=== PATIENT | female | born 1980 | race Caucasian/White ===

== ENCOUNTER 2024-03-05 18:49 | Inpatient (IN) | payer OTHER ==
[2024-03-05 21:58] VITALS: BMI 25.6
[2024-03-05] MEDS ORDERED: BISMUTH SUBSALICYLATE 524 MG/30 ML PO PRN (22:41)
[2024-03-05] MEDS ORDERED: ONDANSETRON *ODT* 4 MG TABLET SL PRN (22:41)
[2024-03-05] MEDS ORDERED: NICOTINE POLACRILEX 2 MG GUM BUC PRN (22:41)
[2024-03-05] MEDS ORDERED: NICOTINE POLACRILEX 2 MG LOZENGE BC PRN (22:41)
[2024-03-05] MEDS ORDERED: NALOXONE HCL 0.4 MG/ML VIAL IM PRN (22:41)
[2024-03-05] MEDS ORDERED: MAGNESIUM HYDROX 2400MG/30ML ORAL SUSPENSION 30 ML CUP PO PRN (22:41)
[2024-03-05] MEDS ORDERED: POLYETHYLENE GLYCOL (HEALTHYLAX) 3350 17 GM PACKET PO PRN (22:41)
[2024-03-05] MEDS ORDERED: BENZONATATE 200 MG CAPSULE PO PRN (22:41)
[2024-03-05] MEDS ORDERED: IBUPROFEN 400 MG TABLET (FP) PO PRN (22:41)
[2024-03-05] MEDS ORDERED: BENZOCAINE/MENTHOL (CHLORASEPTIC ) LOZENGE MM PRN (22:41)
[2024-03-05] MEDS ORDERED: guaiFENesin 600 MG TABLET.ER (FP) PO PRN (22:41)
[2024-03-05] MEDS ORDERED: DICYCLOMINE HCL 10 MG CAPSULE PO PRN (22:41)
[2024-03-05] MEDS ORDERED: MAG HYDROX/AL HYDROX/SIMETH 30 ML UNIT-DOSE CUP PO PRN (22:41)
[2024-03-05] MEDS ORDERED: P-EPHED 60MG/TRIPROLIDI 2.5MG TABLET PO PRN (22:41)
[2024-03-05] MEDS ORDERED: NALOXONE (NARCAN) HCL 4 MG/0.1 ML SPRAY NS PRN (22:41)
[2024-03-05] MEDS ORDERED: LOPERAMIDE HCL 2 MG CAPSULE PO PRN (22:41)
[2024-03-05] MEDS ORDERED: hydrOXYzine PAMOATE 25 MG CAPSULE (FP) PO ONE (23:46)
[2024-03-05] MEDS ORDERED: IBUPROFEN 600 MG TABLET (FP) PO ONE (23:51)
[2024-03-05] MEDS: IBUPROFEN 600 MG TABLET (FP) PO PRN (23:52)
[2024-03-05] MEDS: hydrOXYzine PAMOATE 25 MG CAPSULE (FP) PO PRN (23:52)
[2024-03-06] MEDS ORDERED: diazePAM 5 MG TABLET PO PRN (10:33)
[2024-03-06] MEDS: PRENATAL VITAMINS W/ FOLIC ACID TABLET (FP) PO SCH (10:51)
[2024-03-06] MEDS: diazePAM 5 MG TABLET PO SCH (11:13)
[2024-03-06 14:16] LABS: CHLORIDE 112 mmol/L (98-107); POTASSIUM 4.3 mmol/L (3.5-5.1); SODIUM 141 mmol/L (136-145)
[2024-03-06 14:18] LABS: CALCIUM 8.6 mg/dL (8.5-10.1); HEMATOCRIT 40.6 % (32.4-45.2); HEMOGLOBIN 13.7 GM/dL (10.7-15.3); MCH 31.4 pg (25.7-33.7); MCHC 33.8 g/dl (32.0-36.0); MEAN PLT VOLUME 10.4 fl (7.5-11.1); PLATELET COUNT 226 10^3/uL (134-434); RBC 4.36 M/mm3 (3.60-5.2); RDW 14.3 % (11.6-15.6)
[2024-03-06 14:19] LABS: ANION GAP 8 mmol/L (4-13); BLOOD UREA NITROGEN 14.4 mg/dL (7-18); CO2 22 mmol/L (21-32); GLUCOSE,RANDOM 98 mg/dL (74-106)
[2024-03-06 14:21] LABS: SGPT/ALT 9 U/L (13-61)
[2024-03-06 14:22] LABS: CREATININE 0.6 mg/dL (0.55-1.3); SGOT/AST 19 U/L (15-37)
[2024-03-06 14:23] LABS: BILIRUBIN,TOTAL 0.6 mg/dL (0.2-1); TOT PROT 5.9 g/dl (6.4-8.2)
[2024-03-06 14:24] LABS: ALK PHOS 66 U/L (45-117)
[2024-03-06] MEDS: PRAZOSIN HCL 1 MG CAPSULE PO ONE (15:44)
[2024-03-06] MEDS: THIAMINE 100 MG TABLET PO SCH (22:55)
[2024-03-06] MEDS: MELATONIN 5 MG TABLETS PO SCH (22:55)
[2024-03-07] MEDS: METHOCARBAMOL 500 MG TABLET PO PRN (10:11)
[2024-03-07] MEDS: ARIPiprazole 5 MG TABLET PO SCH (12:29)
[2024-03-07] MEDS: PRAZOSIN HCL 5 MG CAPSULE PO SCH (12:35)
[2024-03-07] MEDS: GABAPENTIN 300 MG CAPSULE PO SCH (13:06)
[2024-03-07] MEDS: cloNIDine HCL 0.1 MG TABLET PO PRN (17:32)
[2024-03-07] MEDS: ACETAMINOPHEN 325 MG TABLET (FP) PO PRN (17:33)
[2024-03-07] MEDS ORDERED: PRAZOSIN HCL 1 MG CAPSULE PO SCH ×2 (22:00)
[2024-03-07] MEDS: PRAZOSIN HCL 1 MG CAPSULE PO SCH (22:52)
[2024-03-08] MEDS: diazePAM 5 MG TABLET PO SCH (06:42)
[2024-03-08] MEDS: PANTOPRAZOLE 40 MG TABLET PO SCH (10:09)
[2024-03-08] MEDS: NIFEdipine E.R. 30 MG TABLET PO SCH (10:10)
[2024-03-08] MEDS ORDERED: FLU VACC QS2022-23(6MOS UP)/PF 60 MCG/0.5 ML SYRINGE IM ONE (15:50)
[2024-03-09] MEDS: diazePAM 5 MG TABLET PO SCH (05:16)
[2024-03-09] MEDS: METHOCARBAMOL 500 MG TABLET PO PRN (17:25)
[2024-03-10] MEDS: METHYL SALICYLATE/MENTHOL 30 GM TUBE TP PRN (00:27)
[2024-03-10] MEDS: diazePAM 5 MG TABLET PO ONE (06:03)
[2024-03-10] MEDS: NIFEdipine E.R. 30 MG TABLET PO ONE (13:26)
[2024-03-10] MEDS: MINERAL OIL/PETROLAT/WATER TOPICAL CREAM 113 GM JAR TP PRN (13:35)
[2024-03-10] MEDS: metroNIDAZOLE 0.75% TOPICAL GEL 45 GM TUBE TP SCH (14:59)
[2024-03-11 06:07] VITALS: RESP 16
[2024-03-11] MEDS ORDERED: NALTREXONE HCL 50 MG TABLET PO ONE (09:00)
[2024-03-11] MEDS: NIFEdipine E.R 60 MG TABLET PO SCH (09:13)
[2024-03-11 09:39] VITALS: BP 123/73; PULSE 90; TEMP 98.2
== END 2024-03-11 09:30 | disposition home or self-care (01) | DRG 774 ==
LOC: YASAS 18:49 → Y3N 23:23
PROVIDERS: ADMIT Allergy & Immunology; ATTEND Surgery
PROC: HZ2ZZZZ Detoxification Services for Substance Abuse Treatment (ICD-10-PCS; principal; 2024-03-05)
DX: F10.230 Alcohol dependence with withdrawal, uncomplicated (principal); F14.20 Cocaine dependence, uncomplicated; F12.20 Cannabis dependence, uncomplicated; F17.210 Nicotine dependence, cigarettes, uncomplicated; F31.9 Bipolar disorder, unspecified; F43.10 Post-traumatic stress disorder, unspecified; I10 Essential (primary) hypertension; M25.512 Pain in left shoulder; M54.50 Low back pain, unspecified; G89.29 Other chronic pain; Z62.810 Personal history of physical and sexual abuse in childhood; Z91.410 Personal history of adult physical and sexual abuse; Z63.8 Other specified problems related to primary support group; Z63.0 Problems in relationship with spouse or partner
CPT/HCPCS: 36415; 73030-TC-LT-FY; 80053; 80305; 80307; 85027; 86780; 93005; 93010